=== PATIENT | male | born 1990 | race Caucasian/White ===

== ENCOUNTER 2017-05-27 22:33 | Emergency (ER) | payer OTHER ==
[~2017-05-27] VITALS: Ht 175.3 cm; Wt 86.2 kg
[~2017-05-27 22:33] MED LIST: NO MEDICATIONS; NORFLEX100 M1 PO; VOLTAREN75 MG PO
[2017-05-28 00:23] LABS: URINE SOURCE CLEAN CATCH
[2017-05-28 00:25] LABS: URINE APPEARANCE CLEAR; URINE BILIRUBIN NEG (NEG); URINE BLOOD NEG (NEG); URINE COLOR YELLOW; URINE GLUCOSE NEG (NORM); URINE KETONE NEG (NEG); URINE LEUKOCYTE ESTERASE NEG (NEG); URINE NITRATE NEG (NEG); URINE PH 6.5 (5-8); URINE PROTEIN NEG (NEG); URINE SPECIFIC GRAVITY 1.025 (1.003-1.035)
[2017-05-28 00:28] LABS: MICRO INDICATED? NO
[2017-05-28] MEDS ORDERED: IBUPROFEN800 MG PO (01:20)
[2017-05-28] MEDS ORDERED: FLEXERIL10 MG PO (01:20)
== END 2017-05-28 01:21 | disposition home or self-care (01) ==
LOC: SED 22:33
PROVIDERS: Nurse Practitioner Family
DX: S39.012A Strain of muscle, fascia and tendon of lower back, initial encounter (principal); Z87.442 Personal history of urinary calculi; X50.9XXA Other and unspecified overexertion or strenuous movements or postures, initial encounter; Y93.89 Activity, other specified; Y92.69 Other specified industrial and construction area as the place of occurrence of the external cause
CPT/HCPCS: 81003; 99283